=== PATIENT | male | born 1965 | race Caucasian/White ===

== ENCOUNTER → 2024-07-22 | Outpatient (CLI) | payer OTHER, SELFPAY ==
--- NOTE | 2024-07-22 15:00 | XR_ITS ---
Examination: Ultrasound soft tissue neck TECHNIQUE: Grayscale sonographic images soft tissue neck Exam date and time: July 22, 2024 1514 hours INDICATIONS: Clinical diagnosis by physician cervical lymphadenopathy, difficulty swallowing throat pressure 3 months FINDINGS: No cystic or solid soft tissue neck masses No lymphadenopathy depicted IMPRESSION: No soft tissue masses or lymphadenopathy If symptoms persist, consider CT soft tissue neck post intravenous contrast follow-up, as clinically warranted
== END | disposition home or self-care (01) ==
LOC: CDIM 14:34
PROVIDERS: PCP Nurse Practitioner Family; Referring Provider Nurse Practitioner Family; Visit Provider Nurse Practitioner Family
DX: R59.0 Localized enlarged lymph nodes (principal)
CPT/HCPCS: 76536

== ENCOUNTER 2024-10-05 09:00 | Day surgery (SDC) | payer BC, OTHER, SELFPAY ==
[2024-10-02 13:41] VITALS: BMI 30.4
[2024-10-05] VITALS (10 sets, daily range): BP systolic 126–163; BP diastolic 74–108; PULSE 73–99; RESP 14–20; TEMP 37.1; O2SAT 93–100; BMI 31.6
[2024-10-05] MEDS: SODIUM CHLORIDE 0.9% 500 ML 500 ML 20 ML IV (11:05)
[2024-10-05] MEDS: DiphenhydrAMINE INJ 50 MG/ML VIAL 25 MG IVP (11:06)
[2024-10-05] MEDS: fentaNYL CIT INJ 50 mCg/ML AMP 2ML (ASD USE ONLY) IVP (11:12)
[2024-10-05] MEDS: MIDAZOLAM INJ 1 MG/ML VIAL 2 ML (ASD USE ONLY) 2 MG IVP (11:13)
[2024-10-05] MEDS: ONDANSETRON INJ 2 MG/ML INJ 2 ML 4 MG IVP (11:37)
== END 2024-10-05 12:05 | disposition home or self-care (01) ==
PROVIDERS: PCP Nurse Practitioner Family; Referring Provider Specialist; Visit Provider Specialist
PROC: (CPT 43239; principal; 2024-10-05 09:30)
DX: K22.2 Esophageal obstruction (principal); K29.70 Gastritis, unspecified, without bleeding; K20.80 Other esophagitis without bleeding; K31.7 Polyp of stomach and duodenum; K63.89 Other specified diseases of intestine
CPT/HCPCS: 43248; 43239; C1769; J1200; J2250; J2405; J3010; J7040

== ENCOUNTER → 2024-11-19 | Outpatient (CLI) | payer BC, OTHER, SELFPAY ==
[2024-11-19 17:47] LABS: Alanine Aminotransferase 15 U/L (10-49); Albumin, Serum 4.4 gm/dL (3.4-4.8); Albumin/Globulin Ratio 1.8 (1.2-2.2); Alkaline Phosphatase 86 U/L (46-116); Anion Gap 12 (7-16); Aspartate Amino Transferase 18 U/L (0-34); BUN/Creatinine Ratio 17 Ratio (12-20); Bilirubin,Total 0.7 mg/dL (0.3-1.2); Blood Urea Nitrogen 24 mg/dL (9-23); Calcium 9.2 mg/dL (8.3-10.6); Calcium (Corrected) 9.2 mg/dL (8.5-10.1); Carbon Dioxide 24.5 mMol/L (20.0-31.0); Chloride 107 mMol/L (98-107); Creatinine (Component) 1.4 mg/dL (0.6-1.3); Globulin 2.4 gm/dL (2.3-3.5); Glucose 84 mg/dL (74-106); Osmolality,Calculated 287 (275-295); Potassium 4.1 mMol/L (3.4-5.1); Sodium 143 mMol/L (136-145); Total Protein 6.8 gm/dL (5.7-8.2); eGFR 58 See Note
== END | disposition home or self-care (01) ==
LOC: COPL 16:17
PROVIDERS: PCP Nurse Practitioner Family; Referring Provider Specialist; Visit Provider Specialist
DX: R13.10 Dysphagia, unspecified (principal)
CPT/HCPCS: 36415; 80053

== ENCOUNTER → 2024-11-27 | Outpatient (CLI) | payer BC, OTHER, SELFPAY ==
--- NOTE | 2024-11-27 15:30 | XR_ITS ---
Examination: CT soft tissue neck, with intravenous contrast. 2-D coronal reconstructions. 2-D sagittal reconstructions. Date and time of exam :November 27, 2024 1401 hours INDICATIONS: Patient states lump in the throat beginning 4 months ago. CTDI: vol (mGy):15.1 DLP: (mGycm):499 Technique: 1.25 mm axial sections of the neck of the obtained. Coronal and sagittal reconstructions have been obtained. Intravenous contrast administered 30 cc Isovue-370. Low dose protocols were performed. One or more of the following dose reduction techniques were used; automated exposure control, adjustment of the mA and/or KV according to patient size, use of iterative reconstruction technique. Findings: Symmetrical nasopharynx oropharynx Left carotid triangle and right carotid triangle lymph nodes, the largest on the right side 12 mm Supraglottic region unremarkable The larynx appears normal Symmetrical thyroid lobes Normal epiglottis Moderate degenerative disc disease C5-C6, C6-C7 Lung apices clear IMPRESSION: Carotid triangle lymphadenopathy as above, suggest 6 month follow-up ultrasound soft tissue neck Normal larynx Normal epiglottis Normal thyroid lobes No prevertebral soft tissue prominence
== END | disposition home or self-care (01) ==
LOC: CCTX 14:59
PROVIDERS: PCP Nurse Practitioner Family; Referring Provider Specialist; Visit Provider Specialist
DX: R59.1 Generalized enlarged lymph nodes (principal)
CPT/HCPCS: 70491; A4649; Q9967

== ENCOUNTER 2025-01-22 13:05 | Inpatient (IN) | payer OTHER, SELFPAY ==
[2025-01-22] VITALS (7 sets, daily range): BP systolic 135–174; BP diastolic 86–94; PULSE 85–133; RESP 14–95; TEMP 36.4–37; O2SAT 96–100; BMI 30.4
--- NOTE | 2025-01-22 13:14 | XR_ITS ---
Examination: PA lateral chest 2 views TECHNIQUE: Upright PA lateral chest 2 views Date and time: January 22, 2025 1333 hours INDICATIONS: Chest pain today FINDINGS: Normal heart size. Lungs are clear. The osseous structures are intact IMPRESSION: No active disease
--- NOTE | 2025-01-22 13:14 | XR_ITS ---
Examination: CT brain head without contrast. 2-D sagittal coronal reconstructions Date and time of exam:January 22, 2025 1330 hours INDICATIONS: Right-sided facial numbness today Comparison March 19, 2015 CTDI: vol (mGy):56.5 DLP: (mGycm):1264 Technique: Multiple CT axial sections of the brain have been obtained, 5 mm slice thickness. Contrast has not been administered. 2-D sagittal, coronal reconstructions have been obtained Low dose protocols were performed. One or more of the following dose reduction techniques were used; automated exposure control, adjustment of the mA and/or KV according to patient size, use of iterative reconstruction technique. Findings: No significant ventricular enlargement. Intra-axial or extra-axial hemorrhage density is not seen. No mass effect or midline shift Basal cisterns are not remarkable. Fourth ventricle is midline. Cranial vault intact. Impression: Negative for acute hemorrhage, mass effect or midline shift As clinically warranted, if symptoms persist, consider brain MRI MRA without contrast, stroke protocol, follow-up
--- NOTE | 2025-01-22 13:14 | EKG_ITS ---
[facility] Test Date: 2025-01-22 Pat Name: DARRION GILES Department: Room: - Gender: Male Financial Aid Advisor: : 1965 Requested By: Lizeth Mcgrath Order Number: [id number] Reading MD: Lizeth Mcgrath Measurements Intervals [place] Rate: 119 P: 22 ID: [id number] QRS: -19 QRSD: 85 T: 52 QT: 307 QTc: 432 Interpretive Statements SINUS TACHYCARDIA WITH SHORT ID INTERVAL ABNORMAL RHYTHM ECG Compared to ECG 02/09/2020 13:08:31 Short ID interval now present Sinus rhythm no longer present /store/S0/[id number]/ecg/[id number].pdf
--- NOTE | 2025-01-22 13:16 | PD.EDADULT ---
ED General RME/HPI General Chief complaint: Neuro Symptoms/Deficit Stated complaint: NUMBNESS TO RIGHT SIDE OF FACE & DISORIENTED Time Seen by Provider: 01/22/25 13:14 Arrival date/time: 01/22/25 13:05 RME / HPI RME / HPI narrative: 59-year-old male patient with significant history of anxiety, hyperaldosteronism, was brought in by family for evaluation regarding sudden onset of right sided facial numbness, with on and off confusion severity mild. Patient told me that he happened to him before and it was secondary to low potassium. Patient denies any slurring speech denies any headache denies any dizziness denies any upper or lower extremity focal neurologic deficit. Patient is ambulatory. Everything started around 1 hour prior to ER visit. Patient took his Xanax prior to ER visit. Related Data Home Medications ?Medication ?Instructions ?Recorded ?Confirmed albuterol sulfate 90 mcg/actuation 2 puff inhalation Q6HR PRN 08/20/16 10/02/24 aerosol inhaler (Proventil HFA) WHEEZING #0 inhalations allopurinol 300 mg tablet 300 mg PO BID 10/05/24 10/05/24 bupropion HCl 300 mg 24 hr tablet, 300 mg PO .QHS 10/05/24 10/05/24 extended release spironolactone 50 mg tablet 50 mg PO QDAY 10/05/24 10/05/24 tamsulosin 0.4 mg capsule 0.4 mg PO Q24H 10/05/24 10/05/24 Allergies Allergy/AdvReac Type Severity Reaction Status Date / Time benzocaine Allergy Severe Swelling Verified 01/22/25 13:08 of Lip/Tongue/Throat Corticosteroids Allergy Intermediate Confusion Verified 01/22/25 13:08 (Glucocorticoids) Penicillins Allergy Mild Hives Verified 01/22/25 13:08 Sulfa (Sulfonamide Allergy Rash Verified 01/22/25 13:08 Antibiotics) morphine AdvReac Intermediate Difficulty Verified 01/22/25 13:08 Breathing Pistachio Allergy Unknown Uncoded 01/22/25 13:08 Review of Systems Review of Systems Narrative Review of Systems: Review of system reviewed and within normal limits except mentioned in HPI ED Exam Narrative Physical exam: VITAL SIGNS: Reviewed. GENERAL APPEARANCE: Alert and interactive, follows commands, no acute distress, GCS 15 HEAD AND FACE: Non-traumatic. ENT: PERRL, pink conjunctivitis, eyelid no trauma, Mucous membrane moist. NECK: Supple, nontender, no nuchal rigidity. CHEST: No tenderness, no crepitus, no paradoxical movement, no retractions. LUNGS: Clear, well ventilated, symmetric, no rales, no wheezing, no ronchi, no stridor, good breath sounds bilaterally. HEART: Regular rate, regular rhythm, no murmur, no gallops. ABDOMEN: Soft, positive bowel sounds, nondistended, no guarding, nontender, no rebound, no masses, RECTAL: Deferred. GENITAL: Deferred. NEUROLOGICAL: Gross motor function intact sensory function intact, Appropriate for age. MUSCULOSKELETAL: low back nontender, full range of motion. EXTREMITIES: Nontender, full range of motion. SKIN: Color pink, dry, no rash, no lacerations, no abrasions, no contusions. LYMPHATICS: Deferred. 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 Care 01/22/25 15:39 Active Continuous Pulse Oximetry NOW Care 01/22/25 15:39 Completed Decision to Admit X1 Care 01/22/25 19:44 Active EKG (ED ONLY) *Do not use* NOW Care 01/22/25 13:15 Completed In and Out Catheter NEEDED Care 01/22/25 15:39 Active Insert IV NOW Care 01/22/25 15:39 Active NIH Stroke Scale now Care 01/22/25 15:39 Active NPO NOW Care 01/22/25 15:39 Active Nurse Swallow Screen x1 Care 01/22/25 15:39 Active Consult to Neurology / Tele-Neurology Routine Cons 01/22/25 15:[address] angio stroke protocol Stat Exams 01/22/25 15:[address] head/brain wo con Stat Exams 01/22/25 13:14 Completed EKG (ED Only) Stat Exams 01/22/25 13:14 Draft XR chest 1V Stat Exams 01/22/25 13:14 Completed CBC Stat Lab 01/22/25 13:50 Completed Comprehensive Metabolic Panel Stat Lab 01/22/25 13:50 Completed Drug Screen,Urine Stat Lab 01/22/25 15:39 Ordered Magnesium Stat Lab 01/22/25 13:50 Completed Partial Thromboplastin Time Stat Lab 01/22/25 13:50 Completed Troponin I Stat Lab 01/22/25 13:50 Completed Urinalysis, C/S if Indicated Stat Lab 01/22/25 14:39 Completed Aspirin Med 01/22/25 16:25 Discontinued 325 mg PO X1 ONE Labetalol IV [Trandate IV] Med 01/22/25 15:39 Active 10 mg IVP Q15M PRN Ondansetron Inj [Zofran Inj] Med 01/22/25 15:39 Active 4 mg IVP Q4HR PRN Oxygen Delivery NOW RT 01/22/25 15:39 Active Vital Signs Vital signs: Vital Signs Temperature 97.8 F 01/22/25 13:07 Pulse Rate 133 H 01/22/25 13:07 Respiratory Rate 16 01/22/25 13:07 Blood Pressure 153/90 H 01/22/25 13:07 Pulse Oximetry (%) 100 01/22/25 13:07 Oxygen Delivery Method Room Air 01/22/25 13:07 Discharge Plan Plan Patient Disposition: Admit Acute Care w/in Hospital Discharge Disposition comment: Stable Prescriptions/Referrals Prescriptions/Med Rec: No Action albuterol sulfate [Proventil HFA] 6.7 GM HFA aerosol inhaler 2 puff Inhalation Q6HR PRN (Reason: WHEEZING) Qty: 0 bupropion HCl 300 mg tablet extended release 24 hr 300 mg PO .QHS Patient Comments: TAKE 1 TABLET BY MOUTH EVERY DAY IN THE EVENING spironolactone 50 mg tablet 50 mg PO QDAY Patient Comments: TAKE 1 TABLET BY MOUTH EVERY DAY IN THE MORNING allopurinol 300 mg tablet 300 mg PO BID Patient Comments: TAKE 1 TABLET BY MOUTH TWICE A DAY tamsulosin 0.4 mg capsule 0.4 mg PO Q24H Patient Comments: TAKE 1 CAPSULE BY MOUTH EVERY DAY Referrals: Maye Izquierdo NP [Primary Care Provider] - In 1 week Problem List Clinical Impression: Stroke-like symptom Patient/Caregiver Discharge Instructions Discharge Activity: activity as tolerated Print Language: Mauritian Stand Alone Forms: Rosalba Award Info., Patient Portal Info Letter MDM Narrative MDM hospital course (for use when minimal MDM required): 59-year-old male patient with significant history of anxiety, hyperaldosteronism, was brought in by family for evaluation regarding sudden onset of right sided facial numbness, with on and off confusion severity mild. Patient told me that he happened to him before and it was secondary to low potassium. Patient denies any slurring speech denies any headache denies any dizziness denies any upper or lower extremity focal neurologic deficit. Patient is ambulatory. Everything started around 1 hour prior to ER visit. Patient took his Xanax prior to ER visit. Stroke alert was initiated at 3:41 PM EKG showed sinus tachycardia, ventricular rate of 119 bpm, no ST segment elevation or depression. CT scan of the head came back unremarkable. CTA of the head and neck came back unremarkable. Patient's workup also came back normal. Spoke with teleneurologist, who told me that patient is not a candidate for TNKase, aspirin 325 mg x 1 given also. Results discussed with the patient, who agrees to be admitted for stroke workup. Spoke with hospitalist who admitted the patient. Medication Administration(s) Medication Administration History Labetalol HCl (Labetalol Inj 5 Mg/Ml Vial 20 Ml) 10 mg IVP Q15M PRN PRN Reason: HYPER Ondansetron HCl (Ondansetron Inj 2 Mg/Ml Inj 2 Ml) 4 mg IVP Q4HR PRN PRN Reason: NAUSEA OR VOMITING Stop: 02/21/25 15:38 Discontinued Medications Aspirin (Aspirin 325 Mg Tablet) 325 mg PO X1 ONE Stop: 01/22/25 16:26 Last Admin: 01/22/25 16:35 Dose: 325 mg Documented By: YEFRI Diagnosis Differential Diagnosis ED Complaint MDM: Strokelike symptoms, paresthesia, CVA Diagnoses ruled out and/or further discussions: Paresthesia, strokelike symptoms
--- NOTE | 2025-01-22 13:18 | PC.NURSE ---
EVALUATED BY PROVIDER GRUPO, NO CODE STROKE AT THIS TIME.
[2025-01-22 14:02] LABS: Basophils # (Auto) 0.1 Thou/mm3 (0.0-0.2); Basophils % (Auto) 1 % (0-2.5); Eosinophils # (Auto) 0.2 Thou/mm3 (0.0-0.5); Eosinophils % (Auto) 3 % (0-10); Hematocrit 43.0 % (41.0-53.0); Hemoglobin 15.3 g/dL (13.5-16.0); Immature Granulocytes Auto 0.01 Thou/mm3 (0.00-0.00); Lymphocytes # (Auto) 1.2 Thou/mm3 (1.0-4.8); Lymphocytes % (Auto) 16 % (10-50); Mean Corpuscular HGB Conc 35.6 g/dl (31.0-37.0); Mean Corpuscular Hemoglobin 33.6 pg (25.0-35.0); Mean Corpuscular Volume 94 fL (80-100); Monocytes # (Auto) 0.6 Thou/mm3 (0.0-0.8); Monocytes % (Auto) 8 % (0-12); Neutrophils # (Auto) 5.3 Thou/mm3 (1.8-7.7); Neutrophils % (Auto) 72 % (37-80); Nucleated Red Blood Cell # 0.00 Thou/mm3 (0.00-0.00); Nucleated Red Blood Cell % 0 /100 WBC (0); Platelet Count 224 Thou/mm3 (140-440); RDW Standard Deviation 47.6 fL (35.1-43.9); Red Blood Count 4.56 Miln/mm3 (4.50-5.90); White Blood Count 7.4 Thou/mm3 (3.8-10.6)
[2025-01-22 14:20] LABS: Partial Thromboplastin Time 26.3 Seconds (22.0-36.0)
[2025-01-22 14:23] LABS: Alanine Aminotransferase 15 U/L (10-49); Albumin, Serum 4.4 gm/dL (3.4-4.8); Albumin/Globulin Ratio 2.0 (1.2-2.2); Alkaline Phosphatase 100 U/L (46-116); Anion Gap 7 (7-16); Aspartate Amino Transferase 17 U/L (0-34); BUN/Creatinine Ratio 14 Ratio (12-20); Bilirubin,Total 0.6 mg/dL (0.3-1.2); Blood Urea Nitrogen 19 mg/dL (9-23); Calcium 9.5 mg/dL (8.3-10.6); Calcium (Corrected) 9.5 mg/dL (8.5-10.1); Carbon Dioxide 26.8 mMol/L (20.0-31.0); Chloride 107 mMol/L (98-107); Creatinine (Component) 1.4 mg/dL (0.6-1.3); Globulin 2.2 gm/dL (2.3-3.5); Glucose 113 mg/dL (74-106); Magnesium 2.0 mg/dL (1.6-2.6); Osmolality,Calculated 284 (275-295); Potassium 4.6 mMol/L (3.4-5.1); Sodium 141 mMol/L (136-145); Total Protein 6.6 gm/dL (5.7-8.2); Troponin I < 0.002 ng/mL (0.0-0.045); eGFR 58 See Note
[2025-01-22 14:57] LABS: Collection Type, Urine Clean Catch
--- NOTE | 2025-01-22 15:01 | PC.NURSE ---
CALLED PT INSIDE AND OUTSIDE FROM THE LOBBY TO BRING BACK. PT DID NOT ANSWER AT THIS TIME.
[2025-01-22 15:09] LABS: Bilirubin,Urine Negative (Negative); Blood,Urine Negative (Negative); Clarity,Urine Clear (Clear/Hazy); Color,Urine Colorless (Lt Yel-Yel); Culture Indicated,Urine Not Indicated; Glucose, Urine Negative (Negative); Ketones,Urine Negative (Negative); Leukocyte Esterase,Urine Negative (Negative); Nitrite,Urine Negative (Negative); PH,Urine 6.5 (5.0-7.0); Protein,Urine Negative (Neg - Trace); RBC,Urine < 1 /hpf (0-3); Specific Gravity,Urine 1.005 (1.001-1.035); Squamous Epithelial Cell,Urine < 1 /hpf (0-5); Urobilinogen,Urine Negative mg/dL (0.0-1.0); WBC,Urine < 1 /hpf (0-5)
--- NOTE | 2025-01-22 15:39 | XR_ITS ---
Examination: CTA carotids with intravenous contrast CTA brain, head with intravenous contrast. 2-D sagittal, coronal reconstructions. 3-D reconstructions. Exam date and time: January 22, 2025, 1602 hrs. Indications: Stroke alert, onset focal neurologic deficit today CTDI: vol (mGy) 11.8 DLP: (mGycm) 523 Technique: Multiple CTA axial brain, head carotid images post intravenous contrast injection 75 cc, Isovue-370. 2-D sagittal, coronal reconstructions. 3-D reconstructions, 3-D post processing including vascular maximum intensity projection images. Low dose protocols were performed. One or more of the following dose reduction techniques were used; automated exposure control, adjustment of the mA and/or KV according to patient size, use of iterative reconstruction technique. Findings: No significant common carotid carotid bifurcation or internal carotid artery stenoses. Codominant vertebral arteries with no critical stenoses No cerebral large vessel arterial occlusions or thrombus Impression: No significant neck arterial stenoses No cerebral large vessel arterial occlusions or thrombus.
--- NOTE | 2025-01-22 16:26 | ESCONSULT_ITS ---
Tele Neuro Consultation Consultation Date 01/22/25 Most Recent Vital Signs Last Vital Signs Temp 97.5 F 01/22/25 15:14 Pulse 102 H 01/22/25 16:13 Resp 17 01/22/25 16:13 BP 148/94 H 01/22/25 15:14 Pulse Ox 97 01/22/25 15:14 O2 Del Method Room Air 01/22/25 15:14 Laboratory-Coagulation Panel APTT 26.3 Seconds (22.0-36.0) 01/22/25 13:50 Consultation Narrative [facility] Patient Name:???Jonathan Hammonds Date of :???1965 Identification Number:??? Date of Service:???01/22/2025 15:40:47 Diagnosis:?G45.9 - Transient cerebral ischemic attack, unspecified Impression: ?59 yo M who presents with right sided numbness and disorientation. Head CT personally reviewed on PACS and negative for hemorrhage or acute area of developing infarct on my direct view. Symptoms largely resolved including disorientation feeling that is improving but not full resolved. With no focal de ficits and symptoms near resolved at this time (area of numbness on forehead on right per patient is a chronic issue), would not recommend TNK at this time (do not feel risks are outweighed by benefits). CTA head/neck ordered and pending. Pending acute abnormalities on CTA, would admit for further workup of possible TIA as follows: Our recommendations are outlined below. Recommendations: ? Stroke/Telemetry Floor ? Neuro Checks (Q4) ?--f/u CTA head/neck ?-frequent neuro checks/vitals during admission ?-Goal blood pressure less than 220 systolic ?-obtain MRI brain w/o contrast (routine) ?-obtain Lipid panel, Hb A1c, TTE with bubble study ?-Place on telemetry ?-Start asa 325 mg po qdaily ?-Start atorvastatin 40 mg po qhs ?-dvt pox per primary team ?-obtain UA, CBC, CMP if not already done ?-PT/OT/ST consults - inpatient rehab if recommended ?-Please notify neurology immediately for change in exam Sign Out: ? Discussed with Emergency Department Provider Advanced Imaging:Advanced imaging has been ordered. Results pending. Metrics: Last Known Well: 01/22/2025 12:10:00 Dispatch Time: 01/22/2025 15:40:47 Arrival Time: 01/22/2025 13:05:00 Initial Response Time: 01/22/2025 15:42:38Symptoms: right sided numbness and disorientation. Initial patient interaction: 01/22/2025 15:44:45 NIHSS Assessment Completed: 01/22/2025 15:51:38Patient is not a candidate for Thrombolytic. Thrombolytic Medical Decision: 01/22/2025 15:53:00Patient was not deemed candidate for Thrombolytic because of following reasons: Stroke severity too mild (non-disabling) . CT Head: I personally reviewed all the CT images that were available to me and it showed: Head CT personally reviewed on PACS and negative for hemorrhage or acute area of developing infarct on my direct view Primary Provider Notified of Diagnostic Impression and Management Plan on: 01/22/2025 16:24:57 History of Present Illness:Patient is a 59 year old Male. Patient was brought by private transportation with symptoms of right sided nu mbness and disorientation. 59 yo M who presents with right sided numbness and disorientation. Per report, patient presents with right sided numbness and disorientation starting at 1210 pm. Patient confirms that at 1210 today he had sudden onset of feeling disoriented and right arm/leg numbness that lasted 30 seconds. Disoriented feeling is similar to when his potassium got low in past (trouble getting thoughts together he states). Disorientation feeling improving in past 45 minutes per patient. Patient currently has a mild amount of numbness around right forehead/eye he states but improving from earlier. Does state he has had sinus infections and issues in sinus cavity is affected poorly on right side; changes in sensation on right side of face is a chronic issue. New numbness on right arm/leg resolved earlier today and has not come back. As above, feels disorientation is improving, denies speech changes or weakness. Denies vision changes, headache or issues walking. ? Past Medical History: ?There is no history of Hypertension ?There is no history of Diabetes Mellitus ?There is no history of Atrial Fibrillation ?There is no history of Stroke Other PMH:? hypokalemia, gout Medications: No Anticoagulant use? No Antiplatelet use Reviewed EMR for current medications Allergies:? Reviewed Social History: Smoking: No Family History: There is no family history of premature cerebrovascular disease pertinent to this consultation ROS : 14 Points Review of Systems was performed and was negative except mentioned in HPI. ? ? Examination: BP(146/96),?Pulse(112),?Blood Glucose(124) 1A: Level of Consciousness - Alert; keenly responsive?+ 0 1B: Ask Month and Age - Both Questions Right?+ 0 1C: Blink Eyes & Squeeze Hands - Performs Both Tasks?+ 0 2: Test Horizontal Extraocular Movements - Normal?+ 0 3: Test Visual Carr - No Visual Loss?+ 0 4: Test Facial Palsy (Use Grimace if Obtunded) - Normal symmetry?+ 0 5A: Test Left Arm Motor Drift - No Drift for 10 Seconds?+ 0 5B: Test Right Arm Motor Drift - No Drift for 10 Seconds?+ 0 6A: Test Left Leg Motor Drift - No Drift for 5 Seconds?+ 0 6B: Test Right Leg Motor Drift - No Drift for 5 Seconds?+ 0 7: Test Limb Ataxia (FNF/Heel-Aguilar) - No Ataxia?+ 0 8: Test Sensation - Mild-Moderate Loss: Less Sharp/More Dull?+ 1 9: Test Language/Aphasia - Normal; No aphasia?+ 0 10: Test Dysarthria - Normal?+ 0 11: Test Extinction/Inattention - No abnormality?+ 0 NIHSS Score:?1 NIHSS Free Text :?oriented x3; decreased sensation on forehead on right but patient states that is chronic Pre-Morbid Modified Bethel Scale: 0 Points = No symptoms at all Spoke with :?Dr. Redding This consult was conducted in real time using interactive audio and video technology. Patient was informed of the technology being used for this visit and agreed to proceed. Patient located in hospital and provider located at home/office setting. Patient is being evaluated for possible acute neurologic impairment and high probability of imminent or life-threatening deterioration. I spent total of 40 minutes providing care to this patient, including time for face to face visit via telemedicine, review of medical records, imaging studies and discussion of findings with providers, the patient and/or family. Dr Robert Deras [facility] For Inpatient follow-up with [facility] physician please call [facility] at . As we are not an outpatient service for any post hospital discharge needs please contact the hospital for assistance. If you have any questions for the [facility] physicians or need to reconsult for clinical or diagnostic changes please contact us via [facility] at . Signature :Everardo Deras ?
--- NOTE | 2025-01-22 16:57 | PRELIM_ITS ---
CT angiogram of the head and neck with intravenous contrast (axial sections with sagittal and coronal reformats) January 22, 2025 1602 hours Clinical History: r/o cva Comparison: No prior study is available for comparison at the time of interpretation Findings: Head: The internal carotid, middle and anterior cerebral arteries are patent bilaterally. The intracranial vertebral arteries are patent. The vertebrobasilar junction, basilar and posterior cerebral arteries are patent. No evidence of large vessel occlusion, critical stenosis or aneurysm. Neck: The aortic arch to the extent visualized as well as the origins of the right brachiocephalic, left common carotid, and left subclavian arteries are patent. There is tortuous course of left internal carotid artery. The common carotid arteries, carotid bulbs, and internal and external carotid arteries are patent. The origins of the vertebral arteries are unremarkable. The vertebral arteries are codominant. No evidence of vascular occlusion, critical stenosis, dissection or aneurysm. The soft tissues of the neck are unremarkable. The osseous structures are unremarkable. Impression: Head: No evidence of large vessel occlusion, critical stenosis or aneurysm. Neck: No evidence of vascular occlusion, critical stenosis, dissection or aneurysm. Report Electronically Signed By: Ken Masterson 01/22/2025 4:56:50 PM [EST]
--- NOTE | 2025-01-22 21:34 | ESHP_ITS ---
Documentation for date of: 01/22/25 [facility] History of Present Illness History of present illness: This is a 59-year-old male PMHx of anxiety and hyperaldosteronism, and gout presenting to the ED with acute onset right-sided facial numbness. 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 He reports feeling his entire face completely numb with tingling sensation throughout the right side of his face. Symptoms persisted throughout the day, and then he became anxious after and decided to go home. He was able to walk normally and drove himself to home. Reports his symptoms decreased a little bit but persisted throughout the day and he decided to come to the ED after. He has a history of hyperaldosteronism diagnosed several years ago. He reports similar symptoms of generalized numbness in the past, whenever he had hypokalemia. Reports previously potassium level would go down to 2.0. However, he hasn't had similar symptoms since he started taking SPIRONOLACTONE, reports his potassium has been within normal limits. Reports occasional palpitations associated with anxiety, but mostly have been under control. He had a full negative cardiac workup with Dr. Ryan 1 year ago. Denies headache, fever, chills, fall or trauma, generalized or focal weakness, chest pain, current palpitations, SOB, abdominal pain, N/V/D/C, hematuria, dysuria, urinary urgency or frequency. Past Medical History: * As above. Past Surgical History: * Cholecystectomy. Medications: * SPIRONOLACTONE 25 mg daily, WELLBUTRIN, ALLOPURINOL. Allergies: * BENZOCAINE, CORTICOSTEROID, PENICILLIN, SULFA DRUGS, MORPHINE, and pistachio. Family History: * Noncontributory. Social History: * Denies alcohol, drug, or tobacco use. ED Course: * Afebrile, BP 153/90, HR 133, satting well on room air. * CBC and coag panel relatively unremarkable. * CHEM panel significant for creatinine 1.4 (baseline 1.4), GFR 58 at baseline, BUN 19 (baseline 24). * Normal LFTs, troponin, and electrolytes. * UA was negative for UTI. U tox is negative. * EKG shows sinus tachycardia with HR 119, no acute ST changes. * Chest x-ray showed no active disease. * Head CT and head/neck CTA were negative for acute pathology. Patient met NIHSS score of 1 based on teleneuro evaluation who recommended admission for stroke workup. Reason for admission: New onset neurological deficits with right-sided facial numbness, with negative initial CT head and head/neck CTA. Warranting admission for further workup including MRI and echo and other recommendations provided by teleneurology. Exam Vital Signs Temp Pulse Resp BP Pulse Ox O2 Del Method 98.6 F 85 14 135/86 H 99 Room Air 01/22/25 21:12 01/22/25 21:12 01/22/25 21:12 01/22/25 21:12 01/22/25 21:12 01/22/25 21:12 Narrative Exam GENERAL * Normal appearing male, NAD. HEENT * NCAT.?ALYSSA. Oral mucosa is moist. Patent Nares NECK * Supple, nontender, no JVD. CHEST * RRR, no m/g/r * CTAB, no w/r/r, symmetrical expansion. ABDOMEN * Soft, flat, nontender. No guarding/rebound tenderness/masses. * Bowel sounds presents EXTREMITIES * No edema/cyanosis.? SKIN * Warm and dry, no jaundice/rashes. NEUROMUSCULAR * No lumbar or midline, no CVA, no paraspinal muscle spasm or tenderness. * Moves all 4 extremities well, with full ROM and good CSM. * MACEDO x4, CN II-XII grossly intact. * No focal neurologic deficits. * Subjective right-sided facial numbness. PSYCHIATRY * Normal mood and affect, cooperative, no SI or HI or hallucinations. Results: Labs 01/22/25 13:50 01/22/25 13:50 Labs: Short CBC 01/22/25 Range/Units 13:50 WBC 7.4 (3.8-10.6) Thou/mm3 Hgb 15.3 (13.5-16.0) g/dL Hct 43.0 (41.0-53.0) % Plt Count 224 (140-440) Thou/mm3 BMP 01/22/25 13:50 Sodium 141 Potassium 4.6 Chloride 107 Carbon Dioxide 26.8 BUN 19 Creatinine 1.4 H Glucose 113 H Calcium 9.5 Cardiac Enzymes 01/22/25 Range/Units 13:50 Troponin I < 0.002 (0.0-0.045) ng/mL Liver Function 01/22/25 Range/Units 13:50 Total Bilirubin 0.6 (0.3-1.2) mg/dL AST 17 (0-34) U/L ALT 15 (10-49) U/L Alkaline Phosphatase 100 (46-116) U/L Albumin 4.4 (3.4-4.8) gm/dL Urine 01/22/25 Range/Units 14:39 Urine Color Colorless A (Lt Yel-Yel) Urine Clarity Clear (Clear/Hazy) Urine pH 6.5 (5.0-7.0) Ur Specific [place] 1.005 (1.001-1.035) Urine Protein Negative (Neg - Trace) Urine Glucose (UA) Negative (Negative) Quality Measures Quality Measures none Medications Home Medications and Allergies Home Medications ?Medication ?Instructions ?Recorded ?Confirmed ?Type albuterol sulfate 90 mcg/actuation 2 puff inhalation Q 6HR PRN 08/20/16 01/22/25 History aerosol inhaler (Proventil HFA) WHEEZING #0 inhalation s allopurinol 300 mg tablet 300 mg PO QDAY 10/05/2401/04 History bupropion HCl 300 mg 24 hr tablet, 300 mg PO .QD 10/0501/22/25 History extended release spironolactone 50 mg tablet 25 mg PO QDAY 10/05/24 History tamsulosin 0.4 mg capsule 0.4 mg PO Q24H 10/05/2401/04 History Held on 01/22/25. Instructions: Order Change alprazolam 0.25 mg tablet 0.25 mg PO BID PRN anxiety 0 01/22/25 01/22/25 History Allergies Allergy/AdvReac Type Severity Reaction Status Date / Time benzocaine Allergy Severe Swelling Verified 01/22/25 13:08 of Lip/Tongue/Throat Corticosteroids Allergy Intermediate Confusion Verified 01/22/25 13:08 (Glucocorticoids) Penicillins Allergy Mild Hives Verified 01/22/25 13:08 Sulfa (Sulfonamide Allergy Rash Verified 01/22/25 13:08 Antibiotics) morphine AdvReac Intermediate Difficulty Verified 01/22/25 13:08 Breathing Pistachio Allergy Unknown Uncoded 01/22/25 13:08 Visit Medications Acetaminophen (Acetaminophen 325 Mg Tablet) 650 mg PO Q6H PRN PRN Reason: PAIN SCALE 1-3 (mild Stop: 02/21/25 21:06 Acetaminophen (Acetaminophen 325 Mg Tablet) 650 mg PO Q6H PRN PRN Reason: Fever >100.4 Stop: 02/21/25 21:06 Hydrocodone Bitart/Acetaminophen (Hydrocodone/Apap 10/325 Tab) 1 tab PO Q4HR PRN PRN Reason: PAIN SCALE 7-10 (Severe Stop: 01/27/25 21:06 Aspirin (Aspirin Ec 81 Mg Tabec) 81 mg PO QDAY JOURDAN Stop: 02/22/25 08:59 Atorvastatin Calcium (Atorvastatin Calcium 20 Mg Tablet) 40 mg PO HS JOURDAN Stop: 02/22/25 20:59 Sodium Chloride (Ns) 1,000 mls @ 80 mls/hr IV .[id number] JOURDAN Stop: 02/21/25 21:29 Labetalol HCl (Labetalol Inj 5 Mg/Ml Vial 20 Ml) 10 mg IVP Q15M PRN PRN Reason: HYPER Labetalol HCl (Labetalol Inj 5 Mg/Ml Vial 20 Ml) 10 mg IVP Q15M PRN PRN Reason: BP >220/110 Stop: 02/21/25 21:26 Ondansetron HCl (Ondansetron Inj 2 Mg/Ml Inj 2 Ml) 4 mg IVP Q4HR PRN PRN Reason: NAUSEA OR VOMITING Stop: 02/21/25 15:38 Ondansetron HCl (Ondansetron Inj 2 Mg/Ml Inj 2 Ml) 4 mg IVP Q6H PRN; Protocol PRN Reason: NAUSEA OR VOMITING Stop: 02/21/25 21:06 Oxycodone/Acetaminophen (Oxycodone/Apap 5/325 Tablet) 1 tab PO Q6H PRN PRN Reason: PAIN SCALE 4-6 (Moderate Stop: 01/27/25 21:06 Pantoprazole Sodium (Pantoprazole Inj 40 Mg Vial) 40 mg IVP QDAY JOURDAN Stop: 02/22/25 08:59 Discontinued Medications Aspirin (Aspirin 325 Mg Tablet) 325 mg PO X1 ONE Stop: 01/22/25 16:26 Last Admin: 01/22/25 16:35 Dose: 325 mg Assessment & Plan Plan This is a 59-year-old male PMHx of anxiety and hyperaldosteronism, and gout presenting to the ED with acute onset right-sided facial numbness. Admitted for stroke workup with negative initial CT head as well as negative head/neck CTA. CVA workup Presented with acute onset right-sided deficit which appears to be resolving. Initial imaging including head CT and head/neck CTA were negative for acute pathology. Electrolytes WNL. UTOX negative. Teleneurology was consulted, recommendations included as below: ? Seizure precaution ? Head elevation >30 degrees ? Permissive hypertension ? Continue LABETALOL 10 mg for BP >220/110 ? Continue TYLENOL for fever ? Continue ASPIRIN 81 mg daily ? Continue ATORVASTATIN 40 mg daily ? Continue maintanance IVF at 80 cc/h ? Pending bedside swallow eval ? Pending speech evaluation ? Pending physical therapy evaluation ? Pending lipid panel, TSH, A1c, echocardiogram ? Pending neurology recommendations ? Pending MRI brain ? Follow-up folate, THIAMINE TRISTIAN versus more likely CKD 3A Admission creatinine 1.4, BUN 19, GFR 58. These findings are consistent with previous admission from this admission. ? Renally dose meds, avoid overdiuresis and NEPHROTOXINS ? Daily CMP Hyperaldosteronism Longstanding history of hyperaldosteronism diagnosed after multiple episodes of hypokalemia. States his potassium has been under control since SPIRONOLACTONE. Admission potassium 4.6, remainder of electrolytes WNL. ? Continue home SPIRONOLACTONE 25 mg daily Gouty arthritis No signs of gout flareup. ? Continue ALLOPURINOL 300 mg daily Generalized anxiety disorder ? Continue WELLBUTRIN 300 mg q. day ? Continue home ALPRAZOLAM 0.25 mg BID PRN Asthma ? Continue home ALBUTEROL 2 puffs q.6h. PRN Health maintenance Diet: Renal diet GI prophylaxis: PROTONIX DVT prophylaxis: HEPARIN SC Antibiotics: not indicated CODE STATUS: FULL-CODE Disposition: Admitted for stroke work-up Case was discussed with attending physician. Cindy Morrissey DO PGY II This document was transcribed using voice recognition technology. Minor inaccuracies may be present. Attending Provider Attestation/Addendum After examination of the patient and review of the clinical data I feel that this patient needs admission to the hospital for further treatment/evaluation. Plan of care discussed with patient and is in agreement. I Austyn Royal MD, attest that I was physically present for godfrey portions of evaluation, and examined patient, labs and imagings and plan of care were discussed with IM residents team, and I agree with the findings and plans documented above.
[2025-01-22] MEDS: SODIUM CHLORIDE 0.9% 1000 ML 1,000 ML 80 ML IV (21:46)
[2025-01-22 22:27] LABS: Amphetamine/Methamp Scrn,U Negative (Negative); Barbiturate Screen,Urine Negative (Negative); Benzodiazepines Screen,Urine Negative (Negative); Benzoylecgonine Screen, Ur Negative (Negative); Fentanyl Screen,Urine Negative (Negative); Opiate Screen,Urine Negative (Negative); THC Screen,Urine Negative (Negative)
[2025-01-23] VITALS (9 sets, daily range): BP systolic 119–156; BP diastolic 75–96; PULSE 69–92; RESP 13–97; TEMP 36.3–37.1; O2SAT 96–99; BMI 30.4
--- NOTE | 2025-01-23 | XR_ITS ---
Examinations: MRI Brain without intravenous contrast. MRA brain without intravenous contrast. MRA carotids without intravenous contrast 3-D vascular reconstructions Date and time of exam: January 23, 2025, 0839 hrs. Indications: CT stroke alert yesterday, onset focal neurologic deficit Technique: Multiple axial and sagittal images of the brain have been obtained MRA brain carotid images without contrast obtained, including 3-D postprocessing, vascular maximum intensity projection images Findings: Sell[place] is not enlarged. The optic chiasm and infundibular stalk are not remarkable. Prepontine and interpeduncular cisterns are not enlarged. No localized enlargement of the medulla or dinora. Fourth ventricle and cerebellar tonsils normal in position. Subacute hemorrhage is not seen. Fourth ventricle is midline. Mass in the cerebellopontine angle region is not evident. 7th and 8th nerve complexes exhibits symmetry. Globes are symmetrical with no retro-orbital mass. Increased white matter signal evident, a few scattered punctate foci of increased signal in the white matter Diffusion-weighted images demonstrate no focus of restricted diffusion Mass-effect upon the ventricular system is not identified. MRA carotid images no significant carotid stenoses. MRA brain images no large vessel occlusions Impression: Negative for acute hemorrhage mass effect or midline shift No acute infarct Scattered punctate foci increased signal in the white matter, demyelinating disease pattern, the appearance should be clinically correlated with neurologic assessment
[2025-01-23 05:29] LABS: Basophils # (Auto) 0.1 Thou/mm3 (0.0-0.2); Basophils % (Auto) 1 % (0-2.5); Eosinophils # (Auto) 0.3 Thou/mm3 (0.0-0.5); Eosinophils % (Auto) 3 % (0-10); Hematocrit 42.7 % (41.0-53.0); Hemoglobin 14.8 g/dL (13.5-16.0); Immature Granulocytes Auto 0.03 Thou/mm3 (0.00-0.00); Lymphocytes # (Auto) 2.2 Thou/mm3 (1.0-4.8); Lymphocytes % (Auto) 27 % (10-50); Mean Corpuscular HGB Conc 34.7 g/dl (31.0-37.0); Mean Corpuscular Hemoglobin 32.7 pg (25.0-35.0); Mean Corpuscular Volume 94 fL (80-100); Monocytes # (Auto) 0.7 Thou/mm3 (0.0-0.8); Monocytes % (Auto) 9 % (0-12); Neutrophils # (Auto) 4.9 Thou/mm3 (1.8-7.7); Neutrophils % (Auto) 60 % (37-80); Nucleated Red Blood Cell # 0.00 Thou/mm3 (0.00-0.00); Nucleated Red Blood Cell % 0 /100 WBC (0); Platelet Count 201 Thou/mm3 (140-440); RDW Standard Deviation 46.9 fL (35.1-43.9); Red Blood Count 4.53 Miln/mm3 (4.50-5.90); White Blood Count 8.1 Thou/mm3 (3.8-10.6)
[2025-01-23 05:58] LABS: Glucose Estimated Average 108 mg/dL (80-131); Hemoglobin A1C 5.4 % Hgb (4.8-6.0)
[2025-01-23 06:04] LABS: Anion Gap 10 (7-16); BUN/Creatinine Ratio 10 Ratio (12-20); Blood Urea Nitrogen 12 mg/dL (9-23); Calcium 9.6 mg/dL (8.3-10.6); Carbon Dioxide 24.3 mMol/L (20.0-31.0); Cardiac Risk Estimate 4.8 RATIO (4.0-6.7); Chloride 108 mMol/L (98-107); Cholesterol 148 mg/dL (132-200); Creatinine (Component) 1.2 mg/dL (0.6-1.3); Estimated Creatinine Clearance 90.2 mL/min (>60); Free T4 (Free Thyroxine) 1.19 ng/dL (0.89-1.76); Glucose 93 mg/dL (74-106); HDL Cholesterol 31 mg/dL (40-60); LDL Cholesterol,Calculated 89 mg/dL (0-130); Magnesium 2.0 mg/dL (1.6-2.6); Osmolality,Calculated 282 (275-295); Phosphorous 3.2 mg/dL (2.4-5.1); Potassium 4.1 mMol/L (3.4-5.1); Sodium 142 mMol/L (136-145); Thyroid Stimulating Hormone 4.08 uIU/mL (0.55-4.78); Triglycerides 138 mg/dL (30-150); eGFR > 60 See Note
[2025-01-23] MEDS: HEPARIN SOD INJ 5000 UNIT/ML VIAL SC (09:45)
[2025-01-23] MEDS: ASPIRIN EC 81 MG TABEC PO (09:45)
[2025-01-23] MEDS: SPIRONOLACTONE 25 MG TABLET PO (09:45)
--- NOTE | 2025-01-23 11:45 | PC.SS ---
FOUNDER AND PRESIDENT conducted bedside contact with the patient conduct initial assessment and to discuss discharge planning.? Patient confirmed demographic information.? Patient resides at home with spouse, Ashlee Hammonds .? Patient is employed as a senior mechanical development engineer.? Patient does not utilize any form of DME to assist with ambulation.? Patient does not utilize home oxygen.? Patient describes the ability to complete ADL?s independently.? Patient identified spouse, Ashlee Hammonds; as medical surrogate decision maker.? Patient?s PCP is Maye Izquierdo.? Patient does not participate with dialysis.? Patient does not possess any specialty providers.? Patient utilizes [facility] for medication services.? Plan is for the patient to return home at the time of discharge.? Family will provide transportation on behalf of the patient.? No further discharge needs identified by the patient.? No further intervention required at this time, bilingual social worker will be available to address any further concerns.? Next of Kin: Ashlee Hammonds D/C Plan: Home
--- NOTE | 2025-01-23 12:37 | PC.NURSE ---
Per Dr. Luis ok to DC IV fluids. Dr. morales MRI report is back.
--- NOTE | 2025-01-23 15:35 | PD.RESPRO ---
Documentation for date of: 01/23/25 Exam Vital Signs Temp Pulse Resp BP Pulse Ox O2 Del Method 98.2 F 80 18 137/92 H 97 Room Air 01/23/25 12:00 01/23/25 12:00 01/23/25 12:00 01/23/25 12:00 01/23/25 12:00 01/23/25 12:00 Objective Labs 01/23/25 04:51 01/23/25 04:51 Labs: Laboratory Results - last 24 hr 01/22/25 01/23/25 14:39 04:51 WBC 8.1 RBC 4.53 Hgb 14.8 Hct 42.7 MCV 94 MCH 32.7 MCHC 34.7 RDW Std Deviation 46.9 H Plt Count 201 Neut % (Auto) 60 Lymph % (Auto) 27 [place] % (Auto) 9 Eos % (Auto) 3 Baso % (Auto) 1 Neut # (Auto) 4.9 Lymph # (Auto) 2.2 [place] # (Auto) 0.7 Eos # (Auto) 0.3 Baso # (Auto) 0.1 Immature Gran # (Auto) 0.03 H Absolute Nucleated RBC 0.00 Immature Gran % 0 Nucleated RBC % 0 Sodium 142 Potassium 4.1 D Chloride 108 H Carbon Dioxide 24.3 Anion Gap 10 BUN 12 Creatinine 1.2 Estim Creat Clear Calc 90.2 eGFR > 60 BUN/Creatinine Ratio [address] L Glucose [address] Glu mg/dL 108 Hemoglobin A1c 5.4 Calculated Osmolality 282 Calcium 9.6 Phosphorus 3.2 Magnesium 2.0 Triglycerides 138 Cholesterol 148 LDL Cholesterol, Calc 89 HDL Cholesterol 31 L Cholesterol/HDL Ratio 4.8 TSH 4.08 Free T4 1.19 Urine Opiates Screen Negative Urine Fentanyl Screen Negative Ur Barbiturates Screen Negative U Amphetamin/Meth Scrn Negative U Benzodiazepines Scrn Negative U Cocaine Metab Screen Negative U Marijuana (THC) Screen Negative Quality Measures Quality Measures none Assessment & Plan Assessment Current Active Medications: Generic Name Dose Route Start Last Admin Trade Name Freq PRN Reason Stop Dose Admin Acetaminophen 650 mg 01/22/25 21:07 Acetaminophen 325 Mg Tablet PO 02/21/25 21:06 Q6H PRN PAIN SCALE 1-3 (mild Acetaminophen 650 mg 01/22/25 21:07 Acetaminophen 325 Mg Tablet PO 02/21/25 21:06 Q6H PRN Fever >100.4 Hydrocodone Bitart/Acetaminophen 1 tab 01/22/25 21:07 Hydrocodone/Apap 10/325 Tab PO 01/27/25 21:06 Q4HR PRN PAIN SCALE 7-10 (Severe Albuterol 2 puff 01/23/25 01:46 Albuterol Inh 8 Gm INH 02/22/25 01:45 Q6HR PRN WHEEZING Allopurinol 300 mg 01/23/25 09:00 01/23/25 09:45 Allopurinol 100 Mg Tablet PO 02/22/25 08:59 300 mg QDAY JOURDAN Administration Alprazolam 0.25 mg 01/23/25 01:46 Alprazolam 0.25 Mg Tablet PO 01/28/25 01:45 BID PRN ANXIETY Aspirin 81 mg 01/23/25 09:00 01/23/25 09:45 Aspirin Ec 81 Mg Tabec PO 02/22/25 08:59 81 mg QDAY JOURDAN Administration Atorvastatin Calcium 40 mg 01/23/25 21:00 Atorvastatin Calcium 20 Mg Tablet PO 02/22/25 20:59 HS JOURDAN Bupropion HCl 300 mg 01/23/25 02:00 Bupropion Hcl Xl 150 Mg Tabcr PO 02/22/25 01:59 .QD JOURDAN Heparin Sodium (Porcine) 5,000 unit 01/23/25 09:00 01/23/25 09:45 Heparin Sod Inj 5000 Unit/Ml Vial SC 02/06/25 08:59 5,000 unit BID JOURDAN Administration Labetalol HCl 10 mg 01/22/25 21:27 Labetalol Inj 5 Mg/Ml Vial 20 Ml IVP 02/21/25 21:26 Q15M PRN BP >220/110 Ondansetron HCl 4 mg 01/22/25 21:07 Ondansetron Inj 2 Mg/Ml Inj 2 Ml IVP 02/21/25 21:06 Q6H PRN NAUSEA OR VOMITING Protocol Oxycodone/Acetaminophen 1 tab 01/22/25 21:07 Oxycodone/Apap 5/325 Tablet PO 01/27/25 21:06 Q6H PRN PAIN SCALE 4-6 (Moderate Pantoprazole Sodium 40 mg 01/23/25 09:00 01/23/25 09:46 Pantoprazole Inj 40 Mg Vial IVP 02/22/25 08:59 40 mg QDAY JOURDAN Administration Spironolactone 25 mg 01/23/25 09:00 01/23/25 09:45 Spironolactone 25 Mg Tablet PO 02/22/25 08:59 25 mg QDAY JOURDAN Administration
--- NOTE | 2025-01-23 17:47 | PC.NURSE ---
Per Dr. Montero no need for Echo, pt. can go home. Follow up with Dr. Montero within 1-[address] Lutz aware
--- NOTE | 2025-01-23 20:09 | ESDS_ITS ---
<Statement entered by Bart Lutz MD - 01/24/25 06:55> Note reviewed and agree with care plan as documented. Please refer to the note below for further details. Plan discussed with attending physician Dr. Jordan Lutz MD PGY-2 Internal Medicine Planned Discharge Date 01/23/25 DS: Providers Provider Date of admission: 01/22/25 21:07 Primary care physician: Maye Izquierdo NP Admitting Provider: Austyn Royal MD Attending Provider on Admission: Austyn Royal MD Consults: 01/22/25 15:39 Consult to Neurology / Tele-Neurology Routine Comment: Consulting Provider: [facility] 01/22/25 21:27 Referral Physical Therapy Routine Comment: Physician Instructions: Referral Speech Therapy Routine Comment: 01/22/25 21:33 Consult to Neurology / Tele-Neurology Routine Comment: stroke work-up Consulting Provider: Carlos Montero Attending Provider on DC: Dmitry Luis DO Discharging Provider: Dmitry Luis DO DS: Diagnosis Problem List Completed Was Problem List Reviewed/Reconciled?: Yes Hospital Course Hospital Course Hospital course: He reported feeling his entire face completely numb with tingling sensation throughout the right side of his body. The symptoms were most prominent for 30 seconds after which it improved though persisted at a milder level throughout the day. Patient reported similar symptoms of generalized numbness in the past, whenever he had hypokalemia. He had started taking spironolactone to the resolution of the symptoms, and monitored potassium levels which had been within normal limits. Vitals in the ED remarkable for BP 153/90, creatinine 1.4, GFR 58, BUN 19 all at baseline. EKG showed sinus tachycardia with HR 119. Head CT and head/neck CTA were negative for acute pathology. Patient was admitted for further workup including MRI and echo and further recommendations provided by teleneurology. On physical exam, patient no longer exhibited any of the symptoms he had come in with. Cranial nerve II through XII intact. Muscle strength and sensation bilaterally. Cerebellar exam normal. Labs done in house showed K+ 4.1, CR 1.2 (down from 1.4 at presentation) TG 138, CH 148, LDL 89 HDL 31. Brain MRI was negative for acute hemorrhage, mass effect, or midline shift. No acute infarct. Teleneurology was informed about scattered punctate foci in the white matter, demyelinating disease pattern on MRI, findings likely to chronic onset, which patient would follow up outpatient for. Admission Diagnoses: #CVA workup #TRISTIAN versus more likely CKD 3 AA #Hyper aldosteronism #Gouty arthritis #Generalized anxiety disorder #Asthma Discharge Instructions: ? Continue taking all other home medications as prescribed ? Follow-up with Primary care doctor within 1-2 weeks of discharge and obtain echo as an outpatient ? Follow-up with neurology within 1-2 weeks of discharge, call [phone] for an appointment. ? Take aspirin 81 mg daily ? If you do not have a primary care provider, you can follow-up at the [facility] (you can call [phone] to make an appointment) ? Return to ED if symptoms worsen or recur This case was discussed with my attending physician, Dr. Ortega, and senior resident, Bolivar Ramos. Dmitry Luis, DO PGY I Status at Discharge Cognitive/behavioral status at discharge: stable Functional status at discharge: independent ambulation Overall status at discharge: patient is back to baseline Time Spent with Patient Time attestation: Total time spent providing and/or coordinating discharge services: More than 50% of patient's hospital stay Time spent: Greater than 30 minutes Quality: Stroke Pt Provided Written Stroke Discharge Instructions: Yes Exam Vital Signs Temp Pulse Resp BP Pulse Ox O2 Del Method 98.2 F 74 20 119/79 98 Room Air 01/23/25 18:23 01/23/25 18:23 01/23/25 18:23 01/23/25 18:23 01/23/25 18:23 01/23/25 18:23 Narrative Exam GENERAL * Normal appearing male, NAD. HEENT * NCAT. ALYSSA. Oral mucosa is moist. Patent Nares NECK * Supple, nontender, no JVD. CHEST * RRR, no m/g/r * CTAB, no w/r/r, symmetrical expansion. ABDOMEN * Soft, flat, nontender. No guarding/rebound tenderness/masses. * Bowel sounds presents EXTREMITIES * No edema/cyanosis.? SKIN * Warm and dry, no jaundice/rashes. NEUROMUSCULAR * No lumbar or midline, no CVA, no paraspinal muscle spasm or tenderness. * Moves all 4 extremities well, with full ROM and good CSM. * MACEDO x4, CN II-XII grossly intact. * No focal neurologic deficits. * Subjective right-sided facial numbness. PSYCHIATRY * Normal mood and affect, cooperative, no SI or HI or hallucinations. Discharge Plan Plan Patient Disposition: HOME (Self Care) Patient condition on transfer: Stable Care Plan Goals: ? Continue taking all other home medications as prescribed ? Follow-up with Primary care doctor within 1-2 weeks of discharge and obtain echo as an outpatient ? Follow-up with neurology within 1-2 weeks of discharge, call [phone] for an appointment. ? Take aspirin 81 mg daily ? If you do not have a primary care provider, you can follow-up at the [facility] (you can call [phone] to make an appointment) ? Return to ED if symptoms worsen or recur Prescriptions/Referrals Prescriptions/Med Rec: New aspirin 81 mg Tablet,Delayed Release (Dr/Ec) 81 mg PO QDAY 30 Days Qty: 30 0RF Continued albuterol sulfate [Proventil HFA] 6.7 GM HFA aerosol inhaler 2 puff Inhalation Q6HR PRN (Reason: WHEEZING) Qty: 0 bupropion HCl 300 mg tablet extended release 24 hr 300 mg PO .QD Patient Comments: TAKE 1 TABLET BY MOUTH EVERY DAY IN THE EVENING spironolactone 50 mg tablet 25 mg PO QDAY Patient Comments: TAKE 1 TABLET BY MOUTH EVERY DAY IN THE MORNING allopurinol 300 mg tablet 300 mg PO QDAY Patient Comments: TAKE 1 TABLET BY MOUTH ONCE A DAY alprazolam 0.25 mg tablet 0.25 mg PO BID PRN (Reason: anxiety) Patient Comments: TAKE 1 TABLET BY MOUTH EVERY DAY DIRECTED Discontinued tamsulosin 0.4 mg capsule 0.4 mg PO Q24H Patient Comments: TAKE 1 CAPSULE BY MOUTH EVERY DAY Referrals: Maye Izquierdo NP [Primary Care Provider] Patient/Caregiver Discharge Instructions Discharge Activity: activity as tolerated Education Materials: Discharge Instructions for ..., Discharge Instructions for ... Print Language: Cypriot Stand Alone Forms: Rosalba Award Info., Patient Portal Info Letter Discharge Order Discharge Orders: Discharge (Routine); Ordered 01/23/25 Ordered By: Bart Lutz Quality Discharge Quality Measures VTE prophylaxis Attestestation Attestation I Malvin Ortega MD reviewed the note and agree with the resident's assessment & plan with modifications/additions/exceptions as below. I have personally reviewed labs, imaging, home meds/prior records, examined the patient, formulated and discussed management plan with the IM team. 59-year-old male with history of hyperaldosteronism gout, esophageal stricture and anxiety disorder with panic attacks presented to ED with right-sided facial numbness that lasted for a few minutes with spontaneous resolution. Patient admitted to evaluate for possible etiology related to stroke. CT head and CTA head and neck unremarkable, MRI obtained did not reveal any significant abnormality white matter demyelinating hyperintense signal for which neurology was consulted and recommended no further investigation or workup. Patient likely has anxiety/panic attack which contributed to his symptoms with spontaneous resolution. Continue aspirin, statin therapy, resume rest of home medications will have patient follow-up in neurology clinic after discharge..
[2025-01-24 20:36] LABS: Folate 20.95 ng/mL (>5.38)
--- NOTE | 2025-01-25 00:04 | VVPN_ITS ---
Telemedicine visit statement This visit was conducted with the use of interactive audio and video telecommunications system that permits real time communication between the patient and the provider. Patient's verbal consent for virtual visit was obtained on 01/24/25 Documentation for date of: 01/24/25 Subjective Subjective Interval history: Patient was seen in telemetry today with FaceTime. Patient denies any headache dizziness nausea or vomiting. Patient denies any weakness or paresthesias. He does have a history of migraines Virtual exam Vital Signs Temp Pulse Resp BP Pulse Ox O2 Del Method 98.2 F 74 20 119/79 98 Room Air 01/23/25 18:23 01/23/25 18:23 01/23/25 18:23 01/23/25 18:23 01/23/25 18:23 01/23/25 18:23 Objective Labs 01/23/25 04:51 01/23/25 04:51 Labs: Laboratory Results - last 24 hr 01/23/25 04:51 Folate 20.95 Assessment & Plan Problem List (1) Stroke-like symptom: Status: Resolved Assessment and plan: Reassurance given to the patient regarding the brain MRI showing nonspecific white matter changes not consistent with a [employer] demyelinating disease. He is advised to take aspirin 81 mg and keep the lifestyle changed. Okay to be discharged from neurology standpoint. Follow-up with me in 2 weeks. Also noted that he underwent detailed workup with the Dr. Ryan when he presented with hypokalemia and nonspecific chest pain, resulted negative. He has been on spironolactone.
[2025-02-01 07:15] LABS: Vitamin B1 (Thiamine)* 19 nmol/L (8-30)
== END 2025-01-23 18:23 | disposition home or self-care (01) | DRG 92 ==
LOC: SERX 19:46 → SERHOLD 21:34 → S2NX 22:06
PROVIDERS: Nurse Practitioner Family; Admitting Provider Student in an Organized Health Care Education/Training Program; Emergency Provider Family Medicine; PCP Nurse Practitioner Family; Visit Provider Student in an Organized Health Care Education/Training Program
DX: R20.0 Anesthesia of skin (principal); G37.9 Demyelinating disease of central nervous system, unspecified; I47.20 Ventricular tachycardia, unspecified; N17.9 Acute kidney failure, unspecified; E26.9 Hyperaldosteronism, unspecified; M10.9 Gout, unspecified; F41.1 Generalized anxiety disorder; J45.909 Unspecified asthma, uncomplicated; N18.31 Chronic kidney disease, stage 3a; Z79.82 Long term (current) use of aspirin; Z79.899 Other long term (current) drug therapy; Z88.2 Allergy status to sulfonamides; Z88.0 Allergy status to penicillin; Z88.5 Allergy status to narcotic agent
CPT/HCPCS: 36415; 70450; 70496; 70498; 70544; 71045; 80048; 80053; 80061; 80307; 81001; 82746; 83036; 83735; 84100; 84425; 84439; 84443; 84484; 85025; 85730; 92610; 93005; 96372; 96374; 97161; 99285; A4649; J1644; J2470; J7030; Q9967; A9270